=== PATIENT | female | born 1965 | race Caucasian/White ===

== ENCOUNTER 2016-04-02 12:05 | Day surgery (SDC) | payer BC ==
[~2016-04-02] VITALS: Ht 161.9 cm; Wt 113.4 kg
[~2016-04-02 12:05] MED LIST: ADVAIR HFA120 INHAL2 IH; ASPIR 8181 M1 PO; ATORVASTATIN CA40 MG PO; CARVEDILOL3.125 MG PO; FISH OIL 1,0001 EAC7 PO; GABAPENTIN300 MG PO; LOVASTATIN40 MG PO; MULTI VITAMIN1 EACH PO; SINGULAIR10 MG PO; SYNTHROID75 MCG PO; VENTOLIN HFA18 GM IH; VITAMIN D5000 UNI1 PO; ZYRTEC10 M2 PO
[2016-04-02 12:59] VITALS: BP 130/88
[2016-04-02 15:58] VITALS: BP 124/71
[2016-04-02 16:42] VITALS: BP 112/64
== END 2016-04-02 16:55 | disposition home or self-care (01) ==
LOC: SDC 12:05
DX: H33.21 Serous retinal detachment, right eye (principal); H27.01 Aphakia, right eye; I10 Essential (primary) hypertension; J45.909 Unspecified asthma, uncomplicated; E03.9 Hypothyroidism, unspecified; M79.7 Fibromyalgia
CPT/HCPCS: J0131; J0690; J1100; J2405; J2765; J3010; J3300; V2632

== ENCOUNTER 2017-05-06 10:04 | Day surgery (SDC) | payer BC ==
[~2017-05-06] VITALS: Ht 160 cm; Wt 111.1 kg
[~2017-05-06 10:04] MED LIST changes: +COMPOUND CREAM TP; +FLONASE ALLERG9.9 ML BOTH NARES; +TRAVATAN Z5 ML BOTH EYES; +VICODIN 5-3001 EACH PO; +VOLTAREN 1% GE100 GM TP
[2017-05-06 10:59] VITALS: BP 139/82
[2017-05-06 13:47] VITALS: BP 149/90
[2017-05-06 14:28] VITALS: BP 146/86
== END 2017-05-06 14:30 | disposition home or self-care (01) ==
LOC: SDC 10:04
PROC: 08P Eye, Removal (ICD-10-PCS; principal; 2017-05-06)
DX: H40.89 Other specified glaucoma (principal); H15.89 Other disorders of sclera; H33.21 Serous retinal detachment, right eye; H57.11 Ocular pain, right eye; M51.06 Intervertebral disc disorders with myelopathy, lumbar region; I25.10 Atherosclerotic heart disease of native coronary artery without angina pectoris; M79.7 Fibromyalgia; J45.20 Mild intermittent asthma, uncomplicated; E03.8 Other specified hypothyroidism; Z79.82 Long term (current) use of aspirin
CPT/HCPCS: J0690; J0713